=== PATIENT | male | born 1975 | race Caucasian/White ===

== ENCOUNTER 2017-03-12 18:28 | Inpatient (IN) | payer MEDICARE, MEDICAID, SELFPAY | END 2017-03-16 14:40 | disposition home or self-care (01) | DRG 190 | PROVIDERS: Admitting Provider Internal Medicine Adolescent Medicine; Emergency Provider Emergency Medicine; Visit Provider Internal Medicine Adolescent Medicine | DX: J44.1 Chronic obstructive pulmonary disease with (acute) exacerbation (principal); J44.0 Chronic obstructive pulmonary disease with (acute) lower respiratory infection; J18.9 Pneumonia, unspecified organism; I10 Essential (primary) hypertension; E11.9 Type 2 diabetes mellitus without complications; Z72.0 Tobacco use | CPT/HCPCS: 36415; 71010; 71020; 80048; 80053; 82550; 82553; 82803; 82962; 83880; 84484; 85025; 87040; 87070; 87077; 87205; 87275; 87276; 93005; 93041; 94640; 94760; 96367; 96374; 97162; 99285; J1956 ==